=== PATIENT | female | born 1975 | race Caucasian/White ===

== ENCOUNTER 2019-01-04 16:37 | Emergency (ER) | payer SELFPAY ==
[~2019-01-04] VITALS: Ht 144.8 cm; Wt 54.4 kg
[2019-01-04 16:49] VITALS: Ht 144.8 cm; Wt 54.4 kg
[2019-01-04 18:13] VITALS: BP 116/69
== END 2019-01-04 18:13 | disposition home or self-care (01) ==
LOC: ED 16:37
DX: R51 Headache (principal); R10.30 Lower abdominal pain, unspecified; Z98.890 Other specified postprocedural states